=== PATIENT | female | born 1990 | race American Indian/Alaskan Native ===

== ENCOUNTER → 2022-05-25 08:00 | Outpatient (CLI) | payer OTHER ==
[~2022-05-25 08:00] MED LIST: NO TOMA MEDICAMENTO
== END | disposition home or self-care (01) ==
LOC: ADM 07:45 → LAB 08:00 → EDSTATUS 05-29 07:45 → CIR.AMB 05-29 07:45
PROVIDERS: ATTEND Obstetrics & Gynecology
DX: N91.1 Secondary amenorrhea (principal); N84.0 Polyp of corpus uteri

== ENCOUNTER 2022-07-15 05:40 | Day surgery (SDC) | payer OTHER | END 2022-07-15 11:30 | disposition home or self-care (01) | LOC: CIR.AMB 05:40 | PROVIDERS: ATTEND Obstetrics & Gynecology | DX: N84.0 Polyp of corpus uteri (principal); Z88.6 Allergy status to analgesic agent; Z86.16 Personal history of COVID-19 ==